=== PATIENT | male | born 1990 | race Caucasian/White ===

== ENCOUNTER 2019-01-19 06:12 | Emergency (ER) | payer MEDICAID, SELFPAY ==
[2019-01-19 06:17] VITALS: BP 135/92; PULSE 99; RESP 18; TEMP 36.7; O2SAT 98
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
== END 2019-01-19 07:51 | disposition home or self-care (01) ==
PROVIDERS: Emergency Provider Physician Assistant; PCP Specialist/Technologist Athletic Trainer
DX: S20.211A Contusion of right front wall of thorax, initial encounter (principal); S60.221A Contusion of right hand, initial encounter; Y04.0XXA Assault by unarmed brawl or fight, initial encounter; Z53.29 Procedure and treatment not carried out because of patient's decision for other reasons
CPT/HCPCS: 99284; 71046; 71100; 73130; 99282

== ENCOUNTER 2020-03-10 06:45 | Emergency (ER) | payer MEDICAID, SELFPAY ==
[2020-03-10 06:58] VITALS: BP 156/97; PULSE 89; TEMP 37.2; O2SAT 97
--- NOTE | 2020-03-10 07:21 | ED.GENADUL_ITS ---
Discharge Plan Disposition Patient Disposition: HOME Condition: Improving Discharge Details Clinical Impression: Odontalgia Primary Care Provider: Bryn Cast ED Provider: Francois Redd Home Meds and New Rx's Prescriptions: New penicillin V potassium 500 mg tablet 500 mg PO TID 10 Days Qty: 30 RF: 0 Continued methadone 40 MG tablet,soluble 55 mg PO DAILY RF: 0 Discharge Instructions Instructions: Toothache (ED) Additional Instructions: May use dental wax as we discussed for comfort. Continue ibuprofen and/or Tylenol as needed for pain. Continue your prescribed methadone. Take penicillin as prescribed. Call dentistry for follow-up appointment. See enclosed list of local dentists if Neelam Suarez is unable to see you. Return to the emergency department for any acute concerns. Medical Decision Making 29-year-old male presents from home. He has a history of poor dentition. Now with 3 days of primarily right upper dental pain. He has numerous dental caries and partially broken costs of the cheek throughout his mouth. Tooth approximately 6 was tender to percussion. Supraperiosteal block placed with relief of pain. Patient be started on penicillin. He needs to follow-up with dentistry for recheck and probable extractions. HPI General Mode of arrival: ambulatory . Date/Time Provider Initiated Documentation: 03/10/20 06:50 . Limitations to Documentation: no limitations . Information obtained by: patient . History of Present Illness 29 year old M presents to the emergency department with the chief complaint of Right upper dental pain, described as moderate, Quality is described as dull, and is localized to the face, mouth and right. Patient reports no radiation. Patient started experiencing this day(s) and it has been constant. No relieving factors improve symptom(s), Eating worsens symptoms . Patient notes no other symptoms.. Patient did receive the following treatments prior to arrival, none Related Data Home Medications Medication Instructions Recorded Confirmed methadone 55 mg PO DAILY 08/02/16 03/10/20 penicillin V potassium 500 mg PO TID 10 Days #30 tab 03/10/20 Previous Rx's Medication Instructions Recorded penicillin V potassium 500 mg PO TID 10 Days #30 tab 03/10/20 Allergies Allergy/AdvReac Type Severity Reaction Status Date / Time No Known Allergies Allergy Unverified 03/10/20 07:03 General Stated Complaint: DentalOral FRANK: 4 Review of Systems Narrative: No facial swelling, no drooling, no change to voice. 6 systems reviewed and otherwise negative [facility] Medical History H/O intravenous drug use in remission Surgical History No significant past surgical history Social History Smoking/Tobacco Use Status: Current every day Smoking risk assessment performed?: Yes Alcohol Intake: current Alcohol Intake frequency: a few times a month Drug use: Daily Substance use type: marijuana Do you feel safe at home: Yes Do you feel safe in your relationship?: Yes Exam Narrative Exam Narrative: GEN: awake, alert, oriented 3. Pleasant, well groomed, interactive. HEAD: Normocephalic, atraumatic ENT: Mucous membranes moist, oropharynx with numerous dental caries and partially broken teeth. Tender overlying approximately tooth #6. No buccal or lingual swelling, External ear exam unremarkable EYES: PERRL, EOMI NECK: Full ROM, no AB, no menigismus CHEST/RESP: No respiratory distress Neuro: Grossly normal neurologic exam, conversant, interactive. Psych: Speech fluent, thoughts congruent, affect normal Course Vital Signs Vital signs: Vital Signs Temperature 37.2 C 03/10/20 06:58 Pulse 89 03/10/20 06:58 Blood Pressure 156/97 H 03/10/20 06:58 Pulse Oximetry 97 03/10/20 06:58 Temperature 37.2 C 03/10/20 06:58 Temperature Source Temporal Artery Scan 03/10/20 06:58 Pulse 89 03/10/20 06:58 Respiratory Effort 03/10/20 07:01 Blood Pressure 156/97 H 03/10/20 06:58 Blood Pressure Position Sitting 03/10/20 06:58 Pulse Oximetry 97 03/10/20 06:58 Pain Level 10 03/10/20 06:58 Procedures Nerve Block Nerve Block 1: Time out performed: Yes Local Anesthetic: Lidocaine 1% and Bupivicaine 0.25% Side: right Intraoral Nerve Block: supraperiosteal Procedure Successful: Yes
[2020-03-10] MEDS: Ibuprofen 800 MG TAB PO (07:41)
[2020-03-10] MEDS: Penicillin V POTASSIUM 500 MG TAB, 4 TABS/BTL PO (07:42)
== END 2020-03-10 07:53 | disposition home or self-care (01) ==
PROVIDERS: Emergency Provider Nurse Practitioner Family; PCP Specialist/Technologist Athletic Trainer
DX: R68.84 Jaw pain (principal)
CPT/HCPCS: 64450

== ENCOUNTER 2020-10-11 15:05 | Emergency (ER) | payer MEDICAID, SELFPAY ==
[2020-10-11] VITALS (25 sets, daily range): BP systolic 132–143; BP diastolic 75–104; PULSE 89–142; RESP 8–32; TEMP 36.6; O2SAT 87–98
--- NOTE | 2020-10-11 15:07 | ED.GENADUL_ITS ---
Discharge Plan Disposition Patient Disposition: AGAINST MEDICAL ADVICE Condition: Fair Discharge Details Clinical Impression: Tachycardia, Fatigue, Methadone dependence Primary Care Provider: Bryn Cast ED Provider: Maranda Billings Home Meds and New Rx's Prescriptions: Continued methadone 40 MG tablet,soluble 45 mg PO DAILY RF: 0 venlafaxine 75 mg capsule,extended release 24hr 75 mg PO DAILY RF: 0 venlafaxine 150 mg capsule,extended release 24hr 150 mg PO DAILY RF: 0 hydroxyzine HCl 50 mg tablet 50 mg PO HS RF: 0 Discharge Instructions Instructions: Fatigue (ED), Tachycardia (ED) Additional Instructions: You are leaving the hospital AGAINST MEDICAL ADVICE. Your current symptoms and your fast heart rate may be due to dehydration but other possibilities include urinary tract infections or serious infections such as meningitis, encephalitis. It is advised that you drink plenty of fluids and get plenty of rest. You were advised to return here immediately with any worsening or new concerning symptoms. Follow-up with your primary care doctor this week for reevaluation. Discharge Data Discharge Date/Time-TO BE ENTERED AT DEPARTURE: 10/11/20 19:00 Discharge Physician: Maranda Billings Medical Decision Making 1530 -- 30yo M who is on daily methadone due to previous opiate abuse now in remission who presents to the ED with excessive fatigue and sweating today. He also had neck pain earlier that is now resolved. Heart rate 140s on arrival, pt extremity diaphoretic and drowsy but arousable and oriented x 3 with questioning. Glucose 120. PO temp 98.4 here. No meningeal signs. No focal deficits. Differential diagnoses include toxic ingestion, electrolyte abnormality, dehydration, arrhythmia, etc. Will place an IV, screening labs, ua, uds, ekg, stat ct head and cxr and give fluids. Tamar Escobar LOGGING SHOVEL OPERATOR from [facility] said that pt received his normal 40mg methadone dose this morning. She states he also receives an extra 40mg dose for home every other day but that this should not cause these symptoms. Patient denies taking this extra dose today. Patient and mom both state that patient has a history of excessive sweating since she was a teenager and this is not unusual especially on extremely warm days. 1625 -- Pt was standing to give urine sample and he states he accidentally pulled out his IV which was placed by a second nurse due to difficult access. HR 130s. He is oriented. Will place another IV. Labs and imaging reviewed. White blood cell count 18. Lactate normal at 0.9. Troponin negative. D-dimer negative. Chest x-ray negative. CT head and C- spine negative for acute findings. 1840 --patient is requesting to leave. His heart rate had decreased to the 90s, but now upon standing attempting to give a urine sample and when sitting back down is remaining in the 130s. I advised patient to stay for additional IV fluids and reevaluation. I discussed that his symptoms could possibly be due to dehydration but would recommend continued monitoring and observation, obtaining a urine sample and also discussed the possibility of meningitis which would require a lumbar puncture. Patient states he does not want to stay for these things and understands risks of and disability. He demonstrates capacity to make decisions. AMA form signed. Also discussed this over the phone with his mom who is coming to fish bait picker the patient and will watch him at home. Advised to follow up with the primary care doctor for re-evaluation. Usual and customary return precautions given. Medical Records Medical records reviewed: Yes I reviewed the patient's medical records. Imaging Data Radiologic Study: Radiologist's impression: XR Chest Exam date and time: 10/11/2020 3:52 PM Age: 30 years old Clinical indication: Other: Fatigue, tachycardia, R/O acute disease TECHNIQUE: Imaging protocol: XR of the chest. Views: 2 views. COMPARISON: CR XR RIBS LT W PA LAT CHEST 01/19/2019 6:52 AM FINDINGS: Lungs: Unremarkable. No consolidation. Pleural spaces: Unremarkable. No pleural effusion. No pneumothorax. Heart/Mediastinum: Unremarkable. No cardiomegaly. Bones/joints: Unremarkable. IMPRESSION: No acute findings. CT Head Without Contrast Exam date and time: 10/11/2020 3:52 PM Age: 30 years old Clinical indication: Other: Fatigue, excessive somnolence, neck pain; Other: R/O acute intracranial inj, cervical FX TECHNIQUE: Imaging protocol: Computed tomography of the head without contrast. COMPARISON: No relevant prior studies available. FINDINGS: Brain: There are bilateral frontal areas of encephalomalacia, left worse than right. There is very minimal left temporal encephalomalacia anteriorly. There is no evidence for acute intracranial hemorrhage. Portillo-white matter differentiation is appropriate. Cisterns and sulci appear intact. Cerebral ventricles: No ventriculomegaly. Paranasal sinuses: Visualized sinuses are unremarkable. No fluid levels. Mastoid air cells: Visualized mastoid air cells are well aerated. Bones/joints: Unremarkable. No acute fracture. Soft tissues: Right occipital convexity scalp hematoma. IMPRESSION: Nonacute apparent posttraumatic changes without definite acute intracranial abnormality. CT Cervical Spine Without Contrast Exam date and time: 10/11/2020 3:52 PM Age: 30 years old Clinical indication: Other: Fatigue, excessive somnolence, neck pain; Other: R/O acute intracranial inj, cervical FX TECHNIQUE: Imaging protocol: Computed tomography images of the cervical spine without contrast. COMPARISON: No relevant prior studies available. FINDINGS: Bones/joints: No acute fracture. Normal alignment. Discs/Spinal canal/Neural foramina: No significant disc protrusion. No severe spinal canal stenosis. No significant neural foraminal narrowing. Dental: Odontogenic disease noted. Lymph nodes: There is mild lymphoid hyperplasia at the tongue base. Lungs: Lung apices are normal. Soft tissues: Unremarkable. IMPRESSION: No evidence for acute cervical spine abnormality. Lab Data Lab results reviewed: Yes I reviewed the patient's lab results. Labs: Laboratory Tests Range/Units 10/11/20 10/11/20 10/11/20 16:10 16:10 16:10 WBC (4.4-10.8) 10^3/uL 18.89 H RBC (4.36-5.78) 10^6/uL 5.18 Hgb (13.5-17.5) g/dL 14.0 Hct (40.0-50.0) % 43.9 MCV (80-95) fL 84.7 MCH (27.0-33.0) pg 27.0 MCHC (32.0-36.0) % 31.9 L RDW (11.8-14.1) % 16.5 H Plt Count (130-400) 10^3/uL 321 MPV (8.0-11.0) fL 10.3 Immature Gran % 0.4 Neutrophils % 76.4 Lymphocytes % 14.7 Monocytes % 7.6 Eosinophils % 0.7 Basophils % 0.2 Nucleated RBC % % 0 Absolute Neutrophils (1.2-6.7) 10^3/uL 14.43 H Absolute Lymphocytes (1.2-3.4) 10^3/uL 2.78 Absolute Monocytes (0.1-0.8) 10^3/uL 1.44 H Absolute Eosinophils (0.0-0.7) 10^3/uL 0.13 Absolute Basophils (0.0-0.2) 10^3/uL 0.04 D-Dimer (<500) ng/mlFEU VBG Lactate (0.6-1.4) mmol/L 0.9 Sodium (136-145) mmol/L 142 Potassium (3.5-5.1) mmol/L 4.2 Chloride (98-107) mmol/L 104 Carbon Dioxide (21.0-32.0) mmol/L 27.9 Anion Gap (3-11) mmol/L 10.1 BUN (7-18) mg/dL 18 Creatinine (0.70-1.30) mg/dL 1.5 H Estimated GFR/1.73 m2 (mL/min/1.73m2) 55.33 Glucose (74-106) mg/dL 107 H Calcium (8.5-10.1) mg/dL 9.6 Total Bilirubin (0.2-1.0) mg/dL 0.2 AST (15-37) U/L 39 H ALT (16-63) U/L 119 H Alkaline Phosphatase (46-116) U/L 87 Troponin I (<0.06) ng/mL Total Protein (6.4-8.2) g/dL 8.8 H Albumin (3.4-5.0) g/dL 4.4 Range/Units 10/11/20 10/11/20 16:10 16:10 WBC (4.4-10.8) 10^3/uL RBC (4.36-5.78) 10^6/uL Hgb (13.5-17.5) g/dL Hct (40.0-50.0) % MCV (80-95) fL MCH (27.0-33.0) pg MCHC (32.0-36.0) % RDW (11.8-14.1) % Plt Count (130-400) 10^3/uL MPV (8.0-11.0) fL Immature Gran % Neutrophils % Lymphocytes % Monocytes % Eosinophils % Basophils % Nucleated RBC % % Absolute Neutrophils (1.2-6.7) 10^3/uL Absolute Lymphocytes (1.2-3.4) 10^3/uL Absolute Monocytes (0.1-0.8) 10^3/uL Absolute Eosinophils (0.0-0.7) 10^3/uL Absolute Basophils (0.0-0.2) 10^3/uL D-Dimer (<500) ng/mlFEU 196 VBG Lactate (0.6-1.4) mmol/L Sodium (136-145) mmol/L Potassium (3.5-5.1) mmol/L Chloride (98-107) mmol/L Carbon Dioxide (21.0-32.0) mmol/L Anion Gap (3-11) mmol/L BUN (7-18) mg/dL Creatinine (0.70-1.30) mg/dL Estimated GFR/1.73 m2 (mL/min/1.73m2) Glucose (74-106) mg/dL Calcium (8.5-10.1) mg/dL Total Bilirubin (0.2-1.0) mg/dL AST (15-37) U/L ALT (16-63) U/L Alkaline Phosphatase (46-116) U/L Troponin I (<0.06) ng/mL < 0.05 Total Protein (6.4-8.2) g/dL Albumin (3.4-5.0) g/dL ECG Data Attestation: I personally reviewed and interpreted this ECG (s) as follows: Interpretation: Rate of 102, sinus. No acute ST elevation or depression. TN 205. QRS 42. QTc 417. HPI General Mode of arrival: ambulatory . Date/Time Provider Initiated Documentation: 10/11/20 15:07 . Limitations to Documentation: no limitations . Information obtained by: patient . HPI Narrative: Pt is a 30yo M who has been on methadone for several years for previous h/o opiate use now is remission presents for excessive fatigue and sweating today. Patient states he is normally very sweaty at baseline. Pt states he awoke this morning with neck pain which then resolved before going to the [facility] for his methadone this morning. He states he thought he may have been overdosed on his methadone this morning as it tasted weird and then when he got home, he was excessively sleepy and he took a nap and when he awoke, his neck pain returned. Pt states his neck pain is now resolved. Pt states he is here because his mom is concerned about his excessive fatigue and wanted him to be evaluated. Pt denies known fever, headache, dizziness, chest pain, shortness of breath, abdominal pain, nausea, vomiting, diarrhea, urinary symptoms, rash. He states he smokes marijuana daily but states he has not gotten it from somewhere new. He denies any other new meds, supplements, ilicit drugs, alcohol. Related Data Home Medications Medication Instructions Recorded Confirmed methadone 45 mg PO DAILY 08/02/16 10/11/20 hydroxyzine HCl 50 mg PO HS 10/11/20 10/11/20 venlafaxine 75 mg PO DAILY 10/11/20 10/11/20 venlafaxine 150 mg PO DAILY 10/11/20 10/11/20 Allergies Allergy/AdvReac Type Severity Reaction Status Date / Time No Known Allergies Allergy Unverified 10/11/20 15:22 General FRANK: 4 Review of Systems All systems reviewed & are unremarkable except as noted in HPI and below Constitutional Constitutional: Reports as per HPI, Denies chills, Reports excessive sweating, Reports fatigue and Denies fever(s) Eyes Eyes: Denies blurry vision ENT Ears, Nose, Mouth, and Throat: Denies dizziness, Denies sore throat and Denies throat swelling Cardiovascular Cardiovascular: Denies chest pain and Denies dyspnea Respiratory Respiratory: Denies cough and Denies dyspnea Gastrointestinal Gastrointestinal: Denies abdominal pain, Denies diarrhea and Denies vomiting Genitourinary Genitourinary: Denies hematuria and Denies dysuria Musculoskeletal Musculoskeletal: Denies back pain and Denies numbness Integumentary/Breasts Skin/Breast: Denies lesions and Denies rash Neurologic Neurologic: Denies dizziness, Denies localized weakness and Denies numbness Endocrine Endocrine: Reports excessive sweating and Reports fatigue Allergic/Immunologic Allergic/Immunologic: Denies throat swelling COUNTS INCLUDE 234 BEDS AT THE [facility] Medical History H/O intravenous drug use in remission Surgical History No significant past surgical history Social History Smoking/Tobacco Use Status: Current every day Smoking risk assessment performed?: Yes Alcohol Intake: current Alcohol Intake frequency: holidays/special occasions only Drug use: Daily Substance use type: marijuana Do you feel safe at home: Yes Do you feel safe in your relationship?: Yes Exam Const General: cooperative, no acute distress and other (excessive sweating, pale) Nutritional Appearance: obese Orientation: alert, awake and oriented x3 HENMT Head: normal to inspection Ears: hearing grossly normal bilaterally, external ears normal and TM's normal bilaterally General nose exam: external nose normal Face and sinus: normal facial exam Throat: posterior oropharynx normal Eyes General: appearance normal, both eyes and all related structures Pupils: PERRL EOM: EOM intact bilaterally Neck Neck: normal visual inspection, no lymphadenopathy, no meningeal signs, trachea midline and No submandibular swelling Lymphatic: no lymphadenopathy noted Chest Chest: normal inspection of the chest and no tenderness Resp Effort & Inspection: normal respiratory effort and able to speak in complete sentences Auscultation: clear to auscultation bilaterally Cardio Rate: regular rate Rhythm: regular rhythm GI Inspection: normal to inspection Palpation: soft, not firm, not rigid and nontender Auscultation: normal bowel sounds Skin General skin exam: no rashes or lesions noted Neuro General: patient alert, patient awake, patient oriented x3, moves all extremities, no meningeal signs and no focal motor deficits Cranial Nerves: CN's II-XI intact bilaterally Cognition: normal cognition Speech: speech normal Motor: muscle tone normal throughout and strength 5/5 throughout Sensory Exam: no sensory deficits noted Extrem General: normal to inspection, full ROM, capillary refill normal, no calf tenderness bilaterally and no edema Psych Appearance: grossly normal Mental Status: mental status grossly normal Speech and Movement: speech and movement normal Affect: normal affect
--- NOTE | 2020-10-11 15:30 | RT.EKG_ITS ---
APPROVED REPORT Exam: Resting ECG Reason for Exam: tachycardia Patient Location: E HR:102 bpm ECG Measurements Heart Rate 102 AXIS LA 205 P 44 QRSd 81 QRS 42 QT 320 T 31 QTc 417 Conclusion Sinus tachycardia...rate> 99 Prolonged LA interval...LA >205, V-rate 91-120. No STEMI. I have reviewed and interpreted ECG and agree with software generated interpretation.
--- NOTE | 2020-10-11 15:45 | DI.RAD_ITS ---
Exam(s) XR CHEST 2V PA LATERAL EXAM: XR CHEST 2V PA LATERAL CLINICAL HISTORY: fatigue, tachycardia, r/o acute disease. TECHNIQUE: 2D digital imaging was performed. COMPARISON: CR XR RIBS LT W PA LAT CHEST from 01/19/2019 FINDINGS: Heart size is normal. The mediastinum is not widened. Lungs are clear. No infiltrates nor pleural effusions. IMPRESSION: No acute pulmonary findings. DATA REPOSITORY: RADIATION DOSE DELIVERED:
--- NOTE | 2020-10-11 15:45 | DI.CT_ITS ---
Exam(s) CT HEAD CERVICAL SPINE WO EXAM: CT HEAD CERVICAL SPINE WO CLINICAL HISTORY: fatigue, excessive somnolence, neck pain. TECHNIQUE: Imaging Protocol: Axial computed tomography images with coronal and sagittal reformatted images were created and reviewed COMPARISON: No exams were available for comparison FINDINGS: BRAIN: There are no skull fractures nor fluid in the visualized paranasal sinuses. There is no evidence of intracranial hemorrhage, intra or extra-axial. Ventricular size is normal. There are no significant findings in the cerebellar hemispheres nor within the hesham, midbrain, and th rachid. However, in the anterior cranial fossa there is significant abnormal white matter hypodensity in both frontal lobes, left more so than right consistent with either prior infarct or sequelae of b ifrontal trauma. There is no evidence of hemorrhage at this time. CERVICAL SPINE: There is no evidence of fracture nor listhesis. No significant prevertebral soft tissue swelling. There is no significant facet joint malalignment. No significant osseous lesions evident. IMPRESSION: Abnormal white matter hypodensity in both frontal lobes, more prominent on left side, not associated with hemorrhage at this time, intra or extra-axial. Most probably this age group this finding would be related to posttraumatic changes such as sequela of severe bilateral bifrontal hemorrhagic contusi ons. Correlation with past history recommended No evidence of cervical spine fracture, malalignment, nor acute compromise of the cervical spinal can al. RADIATION DOSE DELIVERED: 1,730.38mGy.cm Total DLP DATA REPOSITORY: All CT scans at this facility are submitted to the National Radiology Data Registry (NRDR) Dose Index Registry (DIR) with the [employer] [place] [employer] ([employer]). RADIATION OPTIMIZATION: All CT scans at this facility use at least one of these dose optimization te chniques: automated exposure control; mA and/or kV adjustment per patient size (includes targeted exa ms where dose is matched to clinical indication); or iterative reconstruction.
[2020-10-11 16:14] LABS: Lactate 0.9 mmol/L (0.6-1.4)
[2020-10-11 16:22] LABS: Abs Immature Grans 0.08 10^3/uL (0.0-0.06); Absolute Lymphocyte Count 2.78 10^3/uL (1.2-3.4); Absolute Monocyte Count 1.44 10^3/uL (0.1-0.8); Basophils % 0.2; Eosinophils % 0.7; HCT 43.9 % (40.0-50.0); Immature Grans % 0.4; Lymphocytes % 14.7; MCHC 31.9 % (32.0-36.0); MCV 84.7 fL (80-95); MPV 10.3 fL (8.0-11.0); Monocytes % 7.6; Neutrophils % 76.4; Nucleated RBC 0 %; Platelet Count 321 10^3/uL (130-400); RBC 5.18 10^6/uL (4.36-5.78); RDW 16.5 % (11.8-14.1); RDW-SD 51.4 fL; WBC 18.89 10^3/uL (4.4-10.8)
[2020-10-11 16:25] LABS: Absolute Basophil Count 0.04 10^3/uL (0.0-0.2); Absolute Eosinophil Count 0.13 10^3/uL (0.0-0.7); Absolute Neutrophil Count 14.43 10^3/uL (1.2-6.7)
[2020-10-11 16:33] LABS: ALT 119 U/L (16-63); AST 39 U/L (15-37); Albumin 4.4 g/dL (3.4-5.0); Alkaline Phosphatase 87 U/L (46-116); Anion Gap 10.1 mmol/L (3-11); BUN 18 mg/dL (7-18); Bilirubin, Total 0.2 mg/dL (0.2-1.0); CO2 27.9 mmol/L (21.0-32.0); CREATININE 1.5 mg/dL (0.70-1.30); Calcium 9.6 mg/dL (8.5-10.1); Chloride 104 mmol/L (98-107); Estimated GFR 55.33 (mL/min/1.73m2); Glucose 107 mg/dL (74-106); Potassium 4.2 mmol/L (3.5-5.1); Sodium 142 mmol/L (136-145); Total Protein 8.8 g/dL (6.4-8.2)
[2020-10-11 17:02] LABS: Troponin I < 0.05 ng/mL (<0.06)
[2020-10-11 17:14] LABS: D-Dimer 196 ng/mlFEU (<500)
--- NOTE | 2020-10-11 17:33 | DI.VRAD_ITS ---
PROCEDURE INFORMATION: Exam: CT Head Without Contrast Exam date and time: 10/11/2020 3:52 PM Age: 30 years old Clinical indication: Other: Fatigue, excessive somnolence, neck pain; Other: R/O acute intracranial inj, cervical FX TECHNIQUE: Imaging protocol: Computed tomography of the head without contrast. COMPARISON: No relevant prior studies available. FINDINGS: Brain: There are bilateral frontal areas of encephalomalacia, left worse than right. There is very minimal left temporal encephalomalacia anteriorly. There is no evidence for acute intracranial hemorrhage. Portillo-white matter differentiation is appropriate. Cisterns and sulci appear intact. Cerebral ventricles: No ventriculomegaly. Paranasal sinuses: Visualized sinuses are unremarkable. No fluid levels. Mastoid air cells: Visualized mastoid air cells are well aerated. Bones/joints: Unremarkable. No acute fracture. Soft tissues: Right occipital convexity scalp hematoma. IMPRESSION: Nonacute apparent posttraumatic changes without definite acute intracranial abnormality. PROCEDURE INFORMATION: Exam: CT Cervical Spine Without Contrast Exam date and time: 10/11/2020 3:52 PM Age: 30 years old Clinical indication: Other: Fatigue, excessive somnolence, neck pain; Other: R/O acute intracranial inj, cervical FX TECHNIQUE: Imaging protocol: Computed tomography images of the cervical spine without contrast. COMPARISON: No relevant prior studies available. FINDINGS: Bones/joints: No acute fracture. Normal alignment. Discs/Spinal canal/Neural foramina: No significant disc protrusion. No severe spinal canal stenosis. No significant neural foraminal narrowing. Dental: Odontogenic disease noted. Lymph nodes: There is mild lymphoid hyperplasia at the tongue base. Lungs: Lung apices are normal. Soft tissues: Unremarkable. IMPRESSION: No evidence for acute cervical spine abnormality. Dictated and Authenticated by: Ana Mata MD. Ordering:MIQUEL Low MD
--- NOTE | 2020-10-11 17:40 | DI.VRAD_ITS ---
PROCEDURE INFORMATION: Exam: XR Chest Exam date and time: 10/11/2020 3:52 PM Age: 30 years old Clinical indication: Other: Fatigue, tachycardia, R/O acute disease TECHNIQUE: Imaging protocol: XR of the chest. Views: 2 views. COMPARISON: CR XR RIBS LT W PA LAT CHEST 01/19/2019 6:52 AM FINDINGS: Lungs: Unremarkable. No consolidation. Pleural spaces: Unremarkable. No pleural effusion. No pneumothorax. Heart/Mediastinum: Unremarkable. No cardiomegaly. Bones/joints: Unremarkable. IMPRESSION: No acute findings. Dictated and Authenticated by: Nick Gallardo MD. Ordering:MIQUEL Low MD
== END 2020-10-11 19:00 | disposition left against medical advice (07) ==
PROVIDERS: Emergency Provider Physician Assistant; PCP Specialist/Technologist Athletic Trainer
DX: R00.0 Tachycardia, unspecified (principal); R53.83 Other fatigue; F11.20 Opioid dependence, uncomplicated; R61 Generalized hyperhidrosis; Z53.29 Procedure and treatment not carried out because of patient's decision for other reasons; M54.2 Cervicalgia
CPT/HCPCS: 36415; 36416; 80053; 80307; 82962; 93005; 99285; 70450; 71046; 72125; 81003; 83605; 84484; 85025; 85379; 93010

== ENCOUNTER 2022-05-31 14:27 | Outpatient (REF) | payer MEDICAID, SELFPAY ==
[2022-06-02 11:16] LABS: COVID-19 RT-PCR UVMMC Result Negative (Negative)
== END 2022-05-31 14:28 | disposition home or self-care (01) ==
LOC: LBN 14:27
PROVIDERS: PCP Specialist/Technologist Athletic Trainer; Visit Provider Physician Assistant Medical
DX: Z20.822 Contact with and (suspected) exposure to COVID-19 (principal); R05.8 Other specified cough
CPT/HCPCS: U0003

== ENCOUNTER 2022-06-03 11:05 | Emergency (ER) | payer MEDICAID, SELFPAY ==
[2022-06-03 11:16] VITALS: BP 138/88; PULSE 78; RESP 16; TEMP 37.7; O2SAT 98
--- NOTE | 2022-06-03 11:30 | DI.RAD_ITS ---
Exam(s) XR CHEST 2V PA LATERAL EXAM: XR CHEST 2V PA LATERAL CLINICAL HISTORY: cough TECHNIQUE: 2D digital imaging was performed. COMPARISON: CR,XR XR CHEST 2V PA LATERAL from 10/11/2020 FINDINGS: HEART: Normal size. Aorta: Not dilated. PULMONARY VASCULATURE: Normal. LUNGS: Clear. PLEURAL SPACE: No pleural effusion or pneumothorax. BONE:Unremarkable for age. IMPRESSION: No acute abnormality. DATA REPOSITORY: RADIATION DOSE DELIVERED:
--- NOTE | 2022-06-03 12:01 | DI.VRAD_ITS ---
PROCEDURE INFORMATION: Exam: XR Chest Exam date and time: 06/03/2022 11:47 AM Age: 32 years old Clinical indication: Other: Cough TECHNIQUE: Imaging protocol: Radiologic exam of the chest. Views: 2 views. COMPARISON: CR XR CHEST 2V PA LATERAL 10/11/2020 5:08 PM FINDINGS: Lungs: Unremarkable. No consolidation. Pleural spaces: Unremarkable. No pleural effusion. No pneumothorax. Heart/Mediastinum: Unremarkable. No cardiomegaly. Bones/joints: Unremarkable. IMPRESSION: No acute findings. Dictated and Authenticated by: Jere Yañez MD. Ordering:CHACHO Benton MD
--- NOTE | 2022-06-03 12:37 | ED.GENADUL_ITS ---
Discharge Plan Disposition Patient Disposition: Home Condition: Stable Discharge Details Clinical Impression: Bronchitis Primary Care Provider: None,None ED Provider: Chetan Hooker Home Meds and New Rx's Prescriptions: New prednisone 20 mg tablet 40 mg PO DAILY Qty: 8 0RF Continued methadone 40 MG tablet,soluble 30 mg PO DAILY albuterol sulfate [Ventolin HFA] 90 mcg/actuation HFA aerosol inhaler 2 puff INHALATION Q4H PRN Patient Comments: INHALE 2 PUFFS BY MOUTH EVERY 4 TO 6 HOURS NEEDED FOR COUGHING FITS, WHEEZE OR FOR SHORTNESS OF BREATH venlafaxine 75 mg capsule,extended release 24hr 75 mg PO DAILY Patient Comments: not taking venlafaxine 150 mg capsule,extended release 24hr 150 mg PO DAILY Patient Comments: not taking hydroxyzine HCl 50 mg tablet 50 mg PO HS Patient Comments: not taking Discharge Instructions Instructions: Acute Bronchitis (ED) Additional Instructions: At this time your chest x-ray was negative and given that you are improving in symptoms this is reassuring. Continue to take medication as prescribed and use your inhaler as needed. You were given your first dose of steroids here see do not need to start the prescription until tomorrow. If you develop fever chills, worsening cough, or significant change in symptoms feel free to return to the emergency department for reassessment otherwise follow-up with your primary care provider if not improving in the next week. Referrals: Primary Care Provider [Outside] (As needed for reassessment or if not fully improving in the next 1 to 2 weeks) Discharge Data Discharge Date/Time-TO BE ENTERED AT DEPARTURE: 06/03/22 12:55 Medical Decision Making Patient presenting to the emergency department for chief complaint of cough. Patient states this is been going on for approximately 10 days and is having a productive cough. Was seen in the urgent care couple days ago and has been using inhaler. He does state that he has over the last 24 to 48 hours seeing signs of improvement, denies fever chills, denies worsening of cough but does state some associated abdominal pain only when coughing. Patient was recommended to have chest x-ray performed by urgent care but did not have this done and he states that is mainly why he is here because he is still having cough but again endorses improvement overall. Patient does have history of c igarette use and opioid abuse otherwise no significant past medical history. Physical exam is unremarkable and shows no worrisome findings. We will perform chest x-ray due to duration of symptoms. I do not feel that patient needs any emergent interventions at this time. Reviewed radiologist interpretation along with imaging that shows no acute findings to suggest pneumonia. Due to patient's history of smoking I question possible mild bronchitis so we will place patient on steroids but at this point do not feel that patient needs any antibiotic therapy. After discussion of diagnosis and plan of care patient has no further needs, questions, or concerns and states clear understanding to return to the emergency department for any worsening symptoms. This documentation was generated using deeplocalation system, please disregard any oddities of phrase or misspellings. Imaging Data Radiologic Study: Attestation: I personally reviewed and interpreted this imaging study as follows: Imaging: X-Ray Radiologist's impression: Exam(s) PROCEDURE INFORMATION: Exam: XR Chest Exam date and time: 06/03/2022 11:47 AM Age: 32 years old Clinical indication: Other: Cough TECHNIQUE: Imaging protocol: Radiologic exam of the chest. Views: 2 views. COMPARISON: CR XR CHEST 2V PA LATERAL 10/11/2020 5:08 PM FINDINGS: Lungs: Unremarkable. No consolidation. Pleural spaces: Unremarkable. No pleural effusion. No pneumothorax. Heart/Mediastinum: Unremarkable. No cardiomegaly. Bones/joints: Unremarkable. IMPRESSION: No acute findings. HPI General Mode of arrival: ambulatory . Date/Time Provider Initiated Documentation: 06/03/22 11:33 . Limitations to Documentation: no limitations . Information obtained by: patient and RN notes reviewed . History of Present Illness 32 year old M presents to the emergency department with the chief complaint of Cough, described as moderate, Quality is described as aching, and is localized to the abdomen. Patient reports no radiation. Patient started experiencing this day(s) (10) and it has been constant. No relieving factors improve symptom(s), No exacerbating factors reported . Patient notes denies fever/chills. Patient did receive the following treatments prior to arrival, NSAID Related Data Home Medications Medication Instructions Recorded Confirmed methadone 40 mg soluble tablet 30 mg PO DAILY 08/02/16 06/03/22 hydroxyzine HCl 50 mg tablet 50 mg PO HS 10/11/20 10/11/20 venlafaxine 150 mg 150 mg PO DAILY 10/11/20 10/11/20 capsule,extended release 24 hr venlafaxine 75 mg capsule,extended 75 mg PO DAILY 10/11/20 10/11/20 release 24 hr albuterol sulfate 90 mcg/actuation 2 puff inhalation Q4H PRN 06/03/22 06/03/22 aerosol inhaler (Ventolin HFA) prednisone 20 mg tablet 40 mg PO DAILY #8 tabs 06/03/22 Previous Rx's Medication Instructions Recorded prednisone 20 mg tablet 40 mg PO DAILY #8 tabs 06/03/22 Allergies Allergy/AdvReac Type Severity Reaction Status Date / Time No Known Allergies Allergy Unverified 06/03/22 11:22 General Stated Complaint: RespSymp FRANK: 4 Review of Systems Constitutional Constitutional: Denies body ache(s), Denies chills, Denies fever(s) and Denies malaise Eyes Eyes: Denies eye discharge ENT Ears, Nose, Mouth, and Throat: Reports as per HPI, Denies ear discharge, Denies otalgia, Reports nasal congestion, Denies neck pain, Denies sore throat and Denies throat swelling Cardiovascular Cardiovascular: Denies chest pain and Denies dyspnea Respiratory Respiratory: Reports cough and Denies dyspnea Gastrointestinal Gastrointestinal: Reports abdominal pain, Denies diarrhea, Denies nausea and Denies vomiting Musculoskeletal Musculoskeletal: Denies joint swelling and Denies neck pain Integumentary/Breasts Skin/Breast: Denies rash Allergic/Immunologic Allergic/Immunologic: Denies throat swelling PFSH All Active Problems Tachycardia (Acute) Fatigue (Acute) Methadone dependence (Acute) Bronchitis (Acute) Medical History H/O intravenous drug use in remission Surgical History No significant past surgical history Social History Smoking/Tobacco Use Status: Current every day Smoking risk assessment performed?: Yes Alcohol Intake: current Alcohol Intake frequency: holidays/special occasions only Drug use: Daily Substance use type: marijuana Details: methadone client Do you feel safe at home: Yes Do you feel safe in your relationship?: Yes Exam Const General: cooperative, comfortable and no acute distress Orientation: alert and awake [facility] Head: normal to inspection, normocephalic and atraumatic Ears: hearing grossly normal bilaterally General nose exam: external nose normal Face and sinus: no erythema Mouth: no drooling and no muffled voice Neck Neck: normal visual inspection, full ROM, no lymphadenopathy, no meningeal signs, trachea midline and supple Resp Effort & Inspection: normal respiratory effort and able to speak in complete sentences Auscultation: clear to auscultation bilaterally Cardio Rate: regular rate Rhythm: regular rhythm Heart Sounds: S1 normal, S2 normal, normal S1 and S2, no click, no gallops, no murmurs and no rubs Skin General skin exam: no rashes or lesions noted and dry skin (warm) Neuro General: patient alert, patient awake, patient oriented x3, gait normal and moves all extremities Cognition: normal cognition Speech: speech normal Course Vital Signs Vital signs: Vital Signs Temperature 37.7 C H 06/03/22 11:16 Pulse 78 06/03/22 11:16 Respiratory Rate 16 06/03/22 11:16 Blood Pressure 138/88 06/03/22 11:16 Pulse Oximetry 98 06/03/22 11:16 Temperature 37.7 C H 06/03/22 11:16 Temperature Source Tympanic 06/03/22 11:16 Pulse 78 06/03/22 11:16 Respiratory Rate 16 06/03/22 11:16 Respiratory Effort Normal, Non-Labored 06/03/22 11:53 Respiratory Depth Normal 06/03/22 11:53 Blood Pressure 138/88 06/03/22 11:16 Blood Pressure Position Sitting 06/03/22 11:16 Pulse Oximetry 98 06/03/22 11:16 Oxygen Delivery Method Room Air 06/03/22 11:16 Oxygen Flow Rate 0 06/03/22 11:16 Pain Level 8 06/03/22 11:16
[2022-06-03] MEDS: predniSONE 20 MG TAB 60 MG PO (12:46)
[2022-06-03 12:52] VITALS: BP 163/86; PULSE 66; RESP 18; TEMP 36.6; O2SAT 97
== END 2022-06-03 12:55 | disposition home or self-care (01) ==
PROVIDERS: Emergency Provider Nurse Practitioner Family
DX: J40 Bronchitis, not specified as acute or chronic (principal); F17.200 Nicotine dependence, unspecified, uncomplicated
CPT/HCPCS: 99283; 71046; 99284; J7512

== ENCOUNTER 2023-01-03 14:32 | Emergency (ER) | payer MEDICAID, SELFPAY ==
[2023-01-03 14:38] VITALS: BP 145/101; PULSE 96; RESP 20; TEMP 37.1; O2SAT 99
--- NOTE | 2023-01-03 14:53 | ED.GENADUL_ITS ---
Discharge Plan Disposition Patient Disposition: Eloped Condition: Stable Discharge Details Clinical Impression: Multiple rib fractures Primary Care Provider: [place],Local ED Provider: Raya Chandler Home Meds and New Rx's Prescriptions: Continued methadone 40 MG tablet,soluble 30 mg PO DAILY albuterol sulfate [Ventolin HFA] 90 mcg/actuation HFA aerosol inhaler 2 puff INHALATION Q4H PRN Patient Comments: INHALE 2 PUFFS BY MOUTH EVERY 4 TO 6 HOURS NEEDED FOR COUGHING FITS, WHEEZE OR FOR SHORTNESS OF BREATH prednisone 20 mg tablet 40 mg PO DAILY Qty: 8 0RF venlafaxine 75 mg capsule,extended release 24hr 75 mg PO DAILY Patient Comments: not taking venlafaxine 150 mg capsule,extended release 24hr 150 mg PO DAILY Patient Comments: not taking hydroxyzine HCl 50 mg tablet 50 mg PO HS Patient Comments: not taking Discharge Instructions Instructions: Rib Fracture (ED) Additional Instructions: Patient has lateral right rib fractures #4, 5, and 6, nondisplaced. He eloped from the ED before he was updated on his test results. Medical Decision Making <Laina Jones MD - Last Filed: 01/03/23 18:42> This is a 32-year-old male who sustained a fall from a ladder at 9 AM this morning with witnessed loss of consciousness. He has had nausea but no vomiting. He is complaining of right-sided chest and abdominal pain. He does not appear clinically intoxicated and his GCS is 15. Since he is dependent on methadone this may impair his ability to feel pain. My plan is to establish an IV and obtain blood work including a CBC to check for leukocytosis anemia and left shift, a comprehensive metabolic panel to check electrolytes renal function and liver function. We will check a lipase and a urine dip for blood. I will obtain a noncontrast CT of the head and cervical spine to rule out intracranial hemorrhage and cervical spine injury. I will also order a CT with contrast of the chest abdomen pelvis to rule out traumatic injury. I will order ketorolac since he had acetaminophen 2 hours ago. His neurologic exam is reassuring and he will likely be discharged home with outpatient follow-up Differential Diagnosis Differential Diagnosis: Closed head injury, intracranial hemorrhage, thoracic or abdominal trauma Medical Records Medical records reviewed: Yes I reviewed the patient's medical records. Imaging Data Radiologic Study: Imaging: CT Scan (Noncontrast head and C-spine) Radiologist's impression: Head CT: No acute abnormality. C-spine CT: No acute abnormality. Lab Data Lab results reviewed: Yes I reviewed the patient's lab results. Lab results narrative: Leukocytosis. Mild anemia slight left shift normal renal function. Mild hyperglycemia, normal transaminases. Normal lipase <Raya Chandler MD - Last Filed: 01/03/23 22:56> This is a 32-year-old male who sustained a fall from a ladder at 9 AM this morning with witnessed loss of consciousness. He has had nausea but no vomiting. He is complaining of right-sided chest and abdominal pain. He does not appear clinically intoxicated and his GCS is 15. Since he is dependent on methadone this may impair his ability to feel pain. My plan is to establish an IV and obtain blood work including a CBC to check for leukocytosis anemia and left shift, a comprehensive metabolic panel to check electrolytes renal function and liver function. We will check a lipase and a urine dip for blood. I will obtain a noncontrast CT of the head and cervical spine to rule out intracranial hemorrhage and cervical spine injury. I will also order a CT with contrast of the chest abdomen pelvis to rule out traumatic injury. I will order ketorolac since he had acetaminophen 2 hours ago. His neurologic exam is reassuring and he will likely be discharged home with outpatient follow-up [address] chest shows nondisplaced lateral right rib fractures #4, 5, and 6. There is no pneumothorax or other chest trauma. His abdomen and pelvis are negative. His TL spine are negative. I went to look for the patient as he had been moved to the waiting room and he was nowhere to be found. He evidently eloped. MD Ramesh HPI <Laina Jones MD - Last Filed: 01/03/23 18:42> General Mode of arrival: ambulatory . Date/Time Provider Initiated Documentation: 01/03/23 14:53 . Information obtained by: patient . HPI Narrative: Time seen was 1454 in bed 11. The patient is a 32-year-old [id number] male who fell off a 6 foot ladder at 9 AM this morning while at work landing on dirt. According to coworkers he did lose consciousness for approximately 30 seconds. After work he went home. He was nauseated and came in because of headache with nausea but no vomiting or blurry vision and right-sided chest and abdominal pain which is 7-10 out of 10 in severity. The patient took 2 regular strength Tylenol and then 2 hours later took 2 more with minimal relief. According to the nursing staff who triaged the patient after the injury he smokes some marijuana but he did not volunteer this information to me. He denies any recent head injury. He denies any midline neck or back pain. He denies any hematuria, shortness of breath or numbness tingling and weakness. The pain is characterized as sharp and radiates up and down his body. He denies any shortness of breath but states that the pain is worse with deep inspiration. He does use tobacco products and has a history of asthma. He denies any saddle anesthesia or bowel or bladder incontinence or retention. He does have a history of methadone dependence tachycardia and fatigue but no other significant medical issues. Related Data Home Medications Medication Instructions Recorded Confirmed methadone 40 mg soluble tablet 30 mg PO DAILY 08/02/16 06/03/22 hydroxyzine HCl 50 mg tablet 50 mg PO HS 10/11/20 10/11/20 venlafaxine 150 mg 150 mg PO DAILY 10/11/20 10/11/20 capsule,extended release 24 hr venlafaxine 75 mg capsule,extended 75 mg PO DAILY 10/11/20 10/11/20 release 24 hr albuterol sulfate 90 mcg/actuation 2 puff inhalation Q4H PRN 06/03/22 06/03/22 aerosol inhaler (Ventolin HFA) prednisone 20 mg tablet 40 mg PO DAILY #8 tabs 06/03/22 Previous Rx's Medication Instructions Recorded prednisone 20 mg tablet 40 mg PO DAILY #8 tabs 06/03/22 Allergies Allergy/AdvReac Type Severity Reaction Status Date / Time No Known Allergies Allergy Unverified 01/03/23 14:43 General Stated Complaint: Fall/Non TraumaCriteria FRANK: 3 Review of Systems <Laina Jones MD - Last Filed: 01/03/23 18:42> Narrative: see hpi [facility] <Laina Jones MD - Last Filed: 01/03/23 18:42> All Active Problems (Updated 01/03/23 @ 19:52 by Raya Chandler MD) Tachycardia (Acute) Fatigue (Acute) Methadone dependence (Acute) Multiple rib fractures (Acute) Medical History H/O intravenous drug use in remission Surgical History No significant past surgical history Social History Smoking/Tobacco Use Status: Current every day Smoking risk assessment performed?: Yes Alcohol Intake: current Alcohol Intake frequency: holidays/special occasions only Drug use: Daily Substance use type: marijuana Details: methadone client Do you feel safe at home: Yes Do you feel safe in your relationship?: Yes Exam <Laina Jones MD - Last Filed: 01/03/23 18:42> Narrative Exam Narrative: The patient is a well-developed well-nourished male who is alert and oriented x4. He is not clinically intoxicated. He has normal speech and gait. GCS is 15. Const General: cooperative, healthy appearing, comfortable, no acute distress, well developed, well groomed and well hydrated Nutritional Appearance: average body habitus and well nourished Orientation: alert, awake and oriented x3 HENMT Head: normal to inspection, normocephalic and atraumatic Ears: hearing grossly normal bilaterally and external ears normal General nose exam: external nose normal, nares normal and no nasal discharge Face and sinus: normal facial exam, sinuses nontender and face symmetric Mouth: oral mucosae normal, lip normal, tongue normal, oropharynx normal, moist mucous membranes and other (Normal phonation. The patient is handling secretions.) Throat: posterior oropharynx normal and uvula midline Other: No hemotympanum otorrhea or rhinorrhea person signs or raccoon's eyes. No malocclusion of the teeth. Airways patent normal phonation Eyes General: appearance normal, both eyes and all related structures Eyelids: eyelids normal Conjunctivae: conjunctivae normal Sclera: sclerae normal Cornea: corneas normal Pupils: PERRL EOM: EOM intact bilaterally and No nystagmus Neck Neck: normal visual inspection, full ROM, no lymphadenopathy, no meningeal signs, trachea midline and supple Lymphatic: no lymphadenopathy noted Other: No midline tenderness step-off or bony crepitus. Full range of motion of his neck Chest Chest: normal inspection of the chest Other: The patient has mild tenderness of the right chest wall. There is no subcutaneous emphysema point tenderness or bony crepitus. He has symmetric expansion Resp Effort & Inspection: normal respiratory effort, able to speak in complete sentences, no audible wheezes, no nasal flaring, no respiratory distress, no retractions, no stridor, not tachypneic, no tracheal deviation, no use of accessory muscles, No prolonged expiratory phase and other (Normal inspiratory to expiratory ratio.) Auscultation: clear to auscultation bilaterally, no rales, no rhonchi, no wheezes and no rubs Tactile Fremitus: tactile fremitus absent Cardio Jugular venous pressure: no JVD Palpation: normal PMI Rate: regular rate Rhythm: regular rhythm Heart Sounds: S1 normal, S2 normal, no gallops, no murmurs and no rubs GI Inspection: normal to inspection and non-distended Palpation: soft, no hepatosplenomegaly, no guarding and nontender Percussion: normal to percussion Auscultation: normal bowel sounds General: No CVA tenderness Back/Spine/Pelvis Back: no CVA tenderness and No back tenderness Cervical Spine: normal cervical lordosis, cervical ROM normal, No cervical muscular tenderness, No pain with cervical ROM, No cervical spinal tenderness and No step off deformity Thoracic/Lumbar Spine: thoracic and lumbar spine normal to inspection, No thoracic spinal tenderness and No lumbar spinal tenderness Pelvis: no pain with anterior-posterior compression and no pain with lateral compression Other: No midline tenderness, step-off, bony crepitus of the CT or LS spine. Skin General skin exam: no rashes or lesions noted, turgor normal, no petechiae, no purpura and other (Skin is normal for ethnicity.) Lesions: no lesions Rashes: no rashes Trauma: no lacerations or abrasions Neuro General: patient alert, patient awake, patient oriented x3, moves all extremities, no meningeal signs, no focal motor deficits and CN's II-XI intact bilaterally Cranial Nerves: CN's II-XI intact bilaterally, PERRL, accommodation normal, EOM intact bilaterally, no nystagmus, facial strength normal, tongue midline, hearing normal and no nystagmus Cognition: normal cognition Speech: speech normal Gait: normal gait Motor: muscle tone normal throughout and strength 5/5 throughout Sensory Exam: no sensory deficits noted DTR's: Rt Patellar: 2+, Lt Patellar: 2+, Rt Ankle: 1+ and Lt Ankle: 1+ Plantar Reflexes: Downgoing: bilateral Pupils: Normal pupillary reactivity/response: bilateral Extrem General: normal to inspection, full ROM, capillary refill normal, no clubbing, cyanosis or edema and no calf tenderness Psych Appearance: grossly normal Affect: normal affect Attitude: cooperative Thought Process: normal Thought Content: normal Insight: insight good Judgment: judgment good Other: The patient appears to have capacity make medical decisions. Course <Laina Jones MD - Last Filed: 01/03/23 18:42> I have signed the patient out to Dr. Chandler Vital Signs Vital signs: Vital Signs Temperature 37.1 C 01/03/23 14:38 Pulse 96 H 01/03/23 14:38 Respiratory Rate 20 01/03/23 14:38 Blood Pressure 145/101 H 01/03/23 14:38 Pulse Oximetry 99 01/03/23 14:38 Temperature 37.1 C 01/03/23 14:38 Temperature Source Oral 01/03/23 14:38 Pulse 96 H 01/03/23 14:38 Respiratory Rate 20 01/03/23 14:38 Respiratory Effort Normal 01/03/23 14:44 Blood Pressure 145/101 H 01/03/23 14:38 Blood Pressure Position Sitting 01/03/23 14:38 Pulse Oximetry 99 01/03/23 14:38 Oxygen Delivery Method Room Air 01/03/23 14:38 Oxygen Flow Rate 0 01/03/23 14:38 Pain Level 7 01/03/23 14:38 Critical Care Time <Laina Jones MD - Last Filed: 01/03/23 18:42> Critical Care Time Critical Care Time: Yes Total Critical Care Time: 41 Attestation: This includes time at the bedside, review of radiographs and lab work Sign Out <Laina Jones MD - Last Filed: 01/03/23 18:42> Sign Out Data: Sign Out Comment: This is a 32-year-old male who fell 6 feet off a ladder at work hitting his head and losing consciousness for approximately 30 seconds according to coworkers. He is complaining of headache and right-sided chest and abdominal pain. His head CT and C-spine CT are negative. We are awaiting the results of his chest abdomen and pelvis. Last updated by Laina Jones MD at 01/03/23 18:03
--- NOTE | 2023-01-03 15:23 | DI.CT_ITS ---
Exam(s) CT CHEST/ABD/PEL W CT THORACIC LUMBAR SPINE REC EXAM: CT CHEST/ABD/PEL W CLINICAL HISTORY: fall injury. TECHNIQUE: Imaging Protocol: Axial computed tomography images with coronal and sagittal reformatted images were created and reviewed CONTRAST MATERIAL: Intravenous: Omnipaque 350 Contrast volume:100 ml Oral: / no COMPARISON: CT CT HEAD CERVICAL SPINE WO from 01/03/[address] THORACIC LUMBAR SPINE REC from 01/03/2023 FINDINGS: CHEST: Tracheobronchial tree: Patent where visualized. Pulmonary parenchyma: No consolidation or dominant measurable mass. No evidence of pulmonary contusi on. Pleura: No effusion or pneumothorax. Lymph nodes: Within normal limits. Aorta: Thoracic portion non-dilated. Heart: Normal size. No pericardial effusion. Bones: Unremarkable for age. No lytic or blastic lesions.No spine compression fractures. Nondisplac ed fractures of the lateral right 4th through 6th ribs. ABDOMEN and PELVIS: Liver: Normal density. No measurable mass. Gallbladder and biliary tract: No evidence of stones or wall thickening. No biliary dilatation. Pancreas: Normal density, no abnormal calcifications or inflammatory process. Spleen: Normal. Kidneys: Normal size, contour and axis. No radiodense stones or obstructive uropathy. No suspicious m asses seen. Adrenal glands: No masses seen. Aorta: Abdominal portion non-dilated. Mild atherosclerotic changes. Lymph nodes: Within normal limits. Soft tissues: Unremarkable. Bladder: Unremarkable. Bowel: No obstruction or bowel wall thickening. Peritoneal cavity: No ascites. No focal collection or mesenteric inflammatory response. Bones: Unremarkable for age. Reproductive organs: Within normal limits. IMPRESSION: Nondisplaced fractures of the lateral right 4th through 6th ribs. No acute abnormality in the abdomen or pelvis. No acute abnormality in the thoracic or lumbar spine. RADIATION DOSE DELIVERED: Total DLP DATA REPOSITORY: All CT scans at this facility are submitted to the National Radiology Data Registry (NRDR) Dose Index Registry (DIR) with the [employer] (A[employer]). RADIATION OPTIMIZATION: All CT scans at this facility use at least one of these dose optimization te chniques: automated exposure control; mA and/or kV adjustment per patient size (includes targeted exa ms where dose is matched to clinical indication); or iterative reconstruction.
--- NOTE | 2023-01-03 15:23 | DI.CT_ITS ---
Exam(s) CT HEAD CERVICAL SPINE WO EXAM: CT HEAD CERVICAL SPINE WO CLINICAL HISTORY: head injury LOC. TECHNIQUE: Imaging Protocol: Axial computed tomography images with coronal and sagittal reformatted images were created and reviewed COMPARISON: CT CT HEAD CERVICAL SPINE WO from 10/11/[address] CHEST/ABD/PEL W from 01/03/2023 FINDINGS: Head CT Ventricles and Extra axial spaces: Normal in size and morphology for the patient's age. Hemorrhage: None. 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 Midline shift: None. Brainstem/Cerebellum: Normal. Calvarium: Normal. Visualized Paranasal sinuses/Mastoids: Mild ethmoid sinus mucous retention. Soft tissues: Unremarkable. Cervical Spine CT BONES: Vertebral body heights are maintained. Alignment is normal. There is no evidence of acute frac ture. Degenerative disc changes and facet degenerative changes are seen . SOFT TISSUES: No paraspinal hematoma. The airway appears intact. No pneumothorax is seen at the lung apices. IMPRESSION: Head CT: No acute abnormality. C-spine CT: no acute abnormality. RADIATION DOSE DELIVERED: Total DLP DATA REPOSITORY: All CT scans at this facility are submitted to the National Radiology Data Registry (NRDR) Dose Index Registry (DIR) with the [employer] ([employer]). RADIATION OPTIMIZATION: All CT scans at this facility use at least one of these dose optimization te chniques: automated exposure control; mA and/or kV adjustment per patient size (includes targeted exa ms where dose is matched to clinical indication); or iterative reconstruction.
[2023-01-03 15:59] VITALS: BP 166/11; PULSE 80; TEMP 36.6; O2SAT 96
[2023-01-03 16:06] LABS: Abs Immature Grans 0.07 10^3/uL (0.0-0.06); Absolute Basophil Count 0.03 10^3/uL (0.0-0.2); Basophils % 0.2; Eosinophils % 1.7; HCT 38.2 % (40.0-50.0); HGB 12.7 g/dL (13.5-17.5); Immature Grans % 0.4; Lymphocytes % 22.3; MCH 27.3 pg (27.0-33.0); MCHC 33.2 % (32.0-36.0); MCV 82 fL (80-95); MPV 10.7 fL (8.0-11.0); Monocytes % 8.6; Neutrophils % 66.8; Platelet Count 266 10^3/uL (130-400); RBC 4.65 10^6/uL (4.36-5.78); RDW 14.8 % (11.8-14.1); RDW-SD 44.8 fL; WBC 16.21 10^3/uL (4.4-10.8)
[2023-01-03 16:07] LABS: Absolute Eosinophil Count 0.28 10^3/uL (0.0-0.7); Absolute Lymphocyte Count 3.61 10^3/uL (1.2-3.4); Absolute Monocyte Count 1.39 10^3/uL (0.1-0.8); Absolute Neutrophil Count 10.83 10^3/uL (1.2-6.7)
[2023-01-03] MEDS: Ketorolac 15 MG/ML VIAL IVP (16:15)
[2023-01-03 16:18] LABS: PTT Activated 25.2 sec (21.5-31.9); Prothrombin Time 9.8 sec (9.3-11.0)
[2023-01-03 16:20] LABS: ALT 59 U/L (16-63); AST 30 U/L (15-37); Albumin 3.9 g/dL (3.4-5.0); Alkaline Phosphatase 68 U/L (46-116); Anion Gap 10.1 mmol/L (3-11); BUN 25 mg/dL (7-18); Bilirubin, Total 0.2 mg/dL (0.2-1.0); CO2 26.9 mmol/L (21.0-32.0); CREATININE 0.9 mg/dL (0.70-1.30); Calcium 9.4 mg/dL (8.5-10.1); Chloride 102 mmol/L (98-107); Glucose 121 mg/dL (74-106); Lipase 30 U/L (16-77); Potassium 3.6 mmol/L (3.5-5.1); Sodium 139 mmol/L (136-145); Total Protein 7.6 g/dL (6.4-8.2)
[2023-01-03 17:16] VITALS: BP 156/78; PULSE 79; RESP 16; O2SAT 98
[2023-01-03] MEDS: Omnipaque 350 MG/ML 100 ML BTL IJ (17:34)
[2023-01-03] MEDS: Normal Saline Flush 10 ML SYR IVP (17:36)
[2023-01-03] MEDS: Normal Saline - Diluent 50 ML VIAL IJ (17:36)
== END 2023-01-03 19:56 | disposition left against medical advice (07) ==
PROVIDERS: Emergency Medicine Emergency Medical Services; Emergency Provider Emergency Medicine
DX: S22.41XA Multiple fractures of ribs, right side, initial encounter for closed fracture (principal); S09.90XA Unspecified injury of head, initial encounter; F11.21 Opioid dependence, in remission; F17.210 Nicotine dependence, cigarettes, uncomplicated; Z53.29 Procedure and treatment not carried out because of patient's decision for other reasons; W11.XXXA Fall on and from ladder, initial encounter; Y93.89 Activity, other specified; Y92.89 Other specified places as the place of occurrence of the external cause; Y99.0 Civilian activity done for income or pay
CPT/HCPCS: 74177; 80053; 83690; 96374; 99291; 70450; 71260; 72125; 83735; 85025; 85610; 85730; J1885; J3490